=== PATIENT | female | born 1945 | race Caucasian/White ===

== ENCOUNTER 2017-10-08 06:18 | Day surgery (SDC) | payer MEDICARE ==
[~2017-10-08] VITALS: Ht 152.4 cm; Wt 71.9 kg
[~2017-10-08 06:18] MED LIST: ASPI-1012 PO; CLOP75TA32 PO; ESCI10TA54 PO; LISI10TA7 PO; METF500T6 PO; METO25TA6 PO; MULT-415 PO; OMEP40CA37 PO; PRAV80TA21 PO; [UNRECOGNIZED DRUG - OTHER] PO
[2017-10-08 06:26] VITALS: BP 128/58
[2017-10-08] MEDS ORDERED: SODIUM CHLORIDE 0.9% 1000ML 1,000 ML IV ONE (06:26)
[2017-10-08] MEDS ORDERED: PROPOFOL 10 MG/ML 20ML VIAL IV ONE ×2 (07:54→07:55)
== END 2017-10-08 08:43 | disposition home or self-care (01) ==
LOC: DAH 06:18
PROVIDERS: ATTEND Internal Medicine Gastroenterology
DX: Z09 Encounter for follow-up examination after completed treatment for conditions other than malignant neoplasm (principal); K57.30 Diverticulosis of large intestine without perforation or abscess without bleeding; I10 Essential (primary) hypertension; K21.9 Gastro-esophageal reflux disease without esophagitis; E78.5 Hyperlipidemia, unspecified; I25.10 Atherosclerotic heart disease of native coronary artery without angina pectoris; E11.9 Type 2 diabetes mellitus without complications; Z86.73 Personal history of transient ischemic attack (TIA), and cerebral infarction without residual deficits; G47.33 Obstructive sleep apnea (adult) (pediatric); Z90.710 Acquired absence of both cervix and uterus; Z82.49 Family history of ischemic heart disease and other diseases of the circulatory system; Z83.3 Family history of diabetes mellitus; Z95.1 Presence of aortocoronary bypass graft
CPT/HCPCS: 82948 ×2; 93005; A4606; G0105; J2704 ×2; J7030